=== PATIENT | male | born 1930 | race Caucasian/White ===

== ENCOUNTER 2017-03-11 15:23 | Inpatient (IN) ==
--- NOTE | 2017-03-11 15:44 | Internal Med History&Physical ---
Date of Encounter: 03/11/17 Time of Encounter: 15:42 Assessment and Plan (1) Delirium Current visit: No Status: Chronic Patient was noted to have encephalopathy was respiratory failure (2) Gastric ulcer Current visit: No Status: Acute Patient had a history of peptic ulcer disease with bleed Qualifiers: Gastric ulcer chronicity: acute Gastric ulcer complication status: with hemorrhage Qualified Code(s): K25.0 - Acute gastric ulcer with hemorrhage (3) Upper GI bleeding Current visit: No Status: Resolved By history (4) Hypertension Current visit: No Status: Chronic By history Qualifiers: Hypertension type: essential hypertension Qualified Code(s): I10 - Essential (primary) hypertension Internal Medicine - H&P: HPI Chief complaint: Apparently had respiratory failure and encephalopathy Admitted From: Hospital to Hospital Transfer Plans for Post Hospital Care: Home History of present illness: Mr. Haywood is a 86 year old male She was brought here for deconditioning 82 for a white male that I respiratory failure and encephalopathy along with coexisting multiple medical problems Past Med Surg Social Fam HX - Past Medical History Medical history: arthritis, COPD, hypertension, other Psychiatric history: no psych history - Past Surgical History Surgical History: orthopedic, other, other - Social History Smoking Status: Never smoker Smokeless Tobacco Status: No Alcohol use: none Drug use: none - Family History Mother Adopted: No Family Member Ethnicity: Non- Living Status: Hx Family Cancer: Yes Internal Medicine - H&P: Meds Amlodipine [Norvasc] 5 mg PO DAILY 07/04/16 [History] Atenolol 100 mg PO DAILY 07/04/16 [History] OxyCODONE Immed Rel [Roxicodone 5 MG] 5 - 10 mg PO Q6HR PRN #40 tablet 03/08/17 [Rx] Enoxaparin [Lovenox] 30 mg SQ DAILY #10 syr 03/11/17 [Rx] Allergies aspirin Adverse Reaction (Verified 03/09/17 12:43) See Comments HAD A BLEEDING ULCER morphine Adverse Reaction (Verified 07/05/16 11:56) Nausea All Systems PM: A 10-system review of systems was performed and is negative for pertinent findings except as documented above in the HPI. - Head Head exam: Present: atraumatic, normal inspection, normocephalic - Neck Neck exam general surgery: Present: supple, trachea midline. Absent: lymphadenopathy - Respiratory Respiratory exam: Present: CTAB. Absent: accessory muscle use, rales, rhonchi, wheezes - Cardiovascular Cardiovascular exam: Present: RRR, +S1, +S2. Absent: diastolic murmur, gallop, rubs, systolic murmur Internal Med - H&P Results - Labs Labs: Lab pending
[2017-03-11] MEDS ORDERED: *HR* OxyCODONE Immed Rel 5 MG TABLET PO PRN (16:05)
[2017-03-11] MEDS ORDERED: MOM Conc 10 ML UD.LIQ PO PRN (16:08)
--- NOTE | 2017-03-11 16:12 | Internal Med History&Physical ---
Date of Encounter: 03/11/17 Time of Encounter: 16:09 Assessment and Plan (1) Delirium Current visit: No Status: Chronic (2) Gastric ulcer Current visit: No Status: Acute Qualifiers: Gastric ulcer chronicity: acute Gastric ulcer complication status: with hemorrhage Qualified Code(s): K25.0 - Acute gastric ulcer with hemorrhage (3) Hypertension Current visit: No Status: Chronic Qualifiers: Hypertension type: essential hypertension Qualified Code(s): I10 - Essential (primary) hypertension Internal Medicine - H&P: HPI Chief complaint: Patient was brought here after total knee replacement for degenerative join Admitted From: Hospital to Hospital Transfer Plans for Post Hospital Care: Home History of present illness: Mr. Haywood is a 86 year old male A she will be here now for rehabilitation. Past Med Surg Social Fam HX - Past Medical History Medical history: arthritis, COPD, hypertension, other Psychiatric history: no psych history - Past Surgical History Surgical History: orthopedic, other, other - Social History Smoking Status: Never smoker Smokeless Tobacco Status: No Alcohol use: none Drug use: none - Family History Mother History Unknown: Yes Adopted: No Family Member Ethnicity: Non- Living Status: Hx Family Cancer: Yes Internal Medicine - H&P: Meds Amlodipine [Norvasc] 5 mg PO DAILY 07/04/16 [History] Atenolol 100 mg PO DAILY 07/04/16 [History] OxyCODONE Immed Rel [Roxicodone 5 MG] 5 - 10 mg PO Q6HR PRN #40 tablet 03/08/17 [Rx] Enoxaparin [Lovenox] 30 mg SQ DAILY #10 syr 03/11/17 [Rx] Allergies aspirin Adverse Reaction (Verified 03/09/17 12:43) See Comments HAD A BLEEDING ULCER morphine Adverse Reaction (Verified 07/05/16 11:56) Nausea All Systems PM: A 10-system review of systems was performed and is negative for pertinent findings except as documented above in the HPI. - Constitutional Vitals: Temp Pulse Resp BP Pulse Ox 98.9 F 77 16 153/82 94 03/11/17 15:29 03/11/17 15:29 03/11/17 15:29 03/11/17 15:29 03/11/17 15:29 - Head Head exam: Present: atraumatic, normal inspection, normocephalic
[2017-03-11] MEDS: *HR* OxyCODONE Immed Rel 5 MG TABLET PO PRN (18:40)
[2017-03-12] MEDS: *HR* OxyCODONE Immed Rel 5 MG TABLET PO PRN ×3 (01:27→15:37)
[2017-03-12 05:39] LABS: Basophils % 0.3 %; Eosinophils # 0.1 K/mcL (0.0-0.6); Eosinophils % 0.7 %; Hematocrit 26.6 % (37.5-50.1); Hemoglobin 8.8 g/dL (12.9-16.9); Immature Granulocytes % 0.7 % (0-4); Lymphocytes # 1.8 K/mcL (0.6-4.6); Lymphocytes % 15.5 %; Mean Corpuscular HGB Conc 33.1 g/dL (31.6-35.5); Mean Corpuscular Hemoglobin 29.6 pg (28.0-33.3); Mean Corpuscular Volume 89.6 fL (83.0-100.0); Mean Platelet Volume 10.8 fL (9.4-12.4); Monocytes # 1.3 K/mcL (0.0-1.3); Monocytes % 11.1 %; Neutrophils # 8.4 K/mcL (1.6-8.9); Platelet Count 179 K/mcL (140-400); Red Blood Count 2.97 M/mcL (4.19-5.50); Red Cell Distribution Width 13.4 % (11.5-14.5); Segmented Neutrophils % 71.7 %
[2017-03-12 05:47] LABS: INR 1.2; Prothrombin Time 12.5 Seconds (9.4-12.1)
[2017-03-12 05:48] LABS: BUN/Creatinine Ratio 24 (6-26); Blood Urea Nitrogen 23 mg/dL (8-26); Calcium 8.4 mg/dL (8.6-10.8); Carbon Dioxide 27 mEq/L (19-29); Chloride 103 mEq/L (98-109); Glucose 107 mg/dL (70-99); Osmolality,Calculated 288 (280-300); Potassium 4.4 mEq/L (3.5-4.5); Sodium 137 mEq/L (136-145); eGFR For African Americans > 60 (> 60); eGFR For Non-African Americans > 60 (> 60)
[2017-03-12] MEDS: *HR* Enoxaparin 40 MG/0.4 ML SYRINGE SQ SCH (09:24)
--- NOTE | 2017-03-12 14:38 | Internal Med Progress Note ---
Date of Encounter: 03/12/17 Time of Encounter: 14:36 - Assessment and plan (1) Delirium Current Visit: No Status: Chronic Assessment and plan: Resolved (2) Gastric ulcer Current Visit: No Status: Acute Assessment and plan: Under control Qualifiers: Gastric ulcer chronicity: acute Gastric ulcer complication status: with hemorrhage Qualified Code(s): K25.0 - Acute gastric ulcer with hemorrhage (3) Hypertension Current Visit: No Status: Chronic Assessment and plan: Well-controlled Qualifiers: Hypertension type: essential hypertension Qualified Code(s): I10 - Essential (primary) hypertension - Time Spent With Patient less than 15 minutes - Subjective Interval history: Since working with the therapist - Constitutional Vitals: Temp Pulse Resp BP Pulse Ox 98.1 F 72 16 131/81 96 03/12/17 11:39 03/12/17 12:30 03/12/17 12:30 03/12/17 12:30 03/12/17 12:30 - Neck Neck exam general surgery: Present: supple, trachea midline. Absent: lymphadenopathy - Respiratory Respiratory exam: Present: CTAB. Absent: accessory muscle use, rales, rhonchi, wheezes - Cardiovascular Cardiovascular exam: Present: RRR, +S1, +S2. Absent: diastolic murmur, gallop, rubs, systolic murmur Internal Medicine: Result - Labs CBC & Chem 7: 03/12/17 05:20 03/12/17 05:20 Labs: Short CBC 03/12/17 Range/Units 05:20 WBC 11.7 H (4.3-11.1) K/mcL Hgb 8.8 L (12.9-16.9) g/dL Hct 26.6 L (37.5-50.1) % Plt Count 179 (140-400) K/mcL Neutrophils # 8.4 (1.6-8.9) K/mcL BMP 03/12/17 05:20 Sodium 137 Potassium 4.4 Chloride 103 Carbon Dioxide 27 BUN 23 Creatinine 0.95 Glucose 107 H Calcium 8.4 L Lab looks stable - ABG Interpretation ABG results: PT/INR, D-dimer PT 12.5 Seconds (9.4-12.1) H 03/12/17 05:20 Consult Discharge Plan - Plan Referrals: Shamika Pena MD [Primary Care Provider] - (follow up with Danuta Dyer PAC 03/18/17 at 11:[address] [place], [place] [phone] Follow up with Danuta Dyer 03/26/17 at 9:[address] [place], [place] [phone] Follow up with Sin Encarnacion MD 04/07/17 at 9:[address], [address] [place], [place] [phone] Follow up with Robert Macias MD 04/07/17 at 2:[address] [place], [place] [phone] Follow up with Shamika Pena MD 04/28/17 at 12:30 [address] [facility] [place], [place] [phone])
[2017-03-13] MEDS: *HR* Enoxaparin 40 MG/0.4 ML SYRINGE SQ SCH (08:14)
[2017-03-13] MEDS: *HR* OxyCODONE Immed Rel 5 MG TABLET PO PRN ×2 (08:14→13:34)
--- NOTE | 2017-03-13 14:20 | Internal Med Progress Note ---
Date of Encounter: 03/13/17 Time of Encounter: 14:19 - Assessment and plan (1) Delirium Current Visit: No Status: Chronic Assessment and plan: Delirium seems to resolve (2) Gastric ulcer Current Visit: No Status: Acute Assessment and plan: Appears to be stable Qualifiers: Gastric ulcer chronicity: acute Gastric ulcer complication status: with hemorrhage Qualified Code(s): K25.0 - Acute gastric ulcer with hemorrhage (3) Hypertension Current Visit: No Status: Chronic Assessment and plan: Blood pressure well controlled Qualifiers: Hypertension type: essential hypertension Qualified Code(s): I10 - Essential (primary) hypertension - Time Spent With Patient less than 15 minutes - Subjective Interval history: Mr. Haywood is a pleasant 86-year-old who is working with a therapist and doing well. - Constitutional Vitals: Temp Pulse Resp BP Pulse Ox 99.5 F 70 20 133/77 96 03/13/17 06:50 03/13/17 06:50 03/13/17 06:50 03/13/17 06:50 03/13/17 06:50 - Head Head exam: Present: atraumatic, normal inspection, normocephalic - Neck Neck exam general surgery: Present: supple, trachea midline. Absent: lymphadenopathy - Respiratory Respiratory exam: Present: CTAB. Absent: accessory muscle use, rales, rhonchi, wheezes - Cardiovascular Cardiovascular exam: Present: RRR, +S1, +S2. Absent: diastolic murmur, gallop, rubs, systolic murmur - GI/Abdominal GI/Abdominal exam: Present: normal bowel sounds, soft, no peritoneal signs. Absent: distended, tenderness Internal Medicine: Result - Labs CBC & Chem 7: 03/12/17 05:20 03/12/17 05:20 Labs: Lab looks good - ABG Interpretation ABG results: PT/INR, D-dimer PT 12.5 Seconds (9.4-12.1) H 03/12/17 05:20 Consult Discharge Plan - Plan Referrals: Shamika Pena MD [Primary Care Provider] - (follow up with Danuta Dyer PAC 03/18/17 at 11:15 [address] [facility] [address], [address] [phone] Follow up with Danuta Dyer 03/26/17 at 9:[address] [place], [place] [phone] Follow up with Sin Encarnacion MD 04/07/17 at 9:[address] [place], [place] [phone] Follow up with Robert Macias MD 04/07/17 at 2:[address] [place], [place] [phone] Follow up with Shamika Pena MD 04/28/17 at 12:30 [address] [place], [place] [phone])
[2017-03-13] MEDS ORDERED: *HR* OxyCODONE Immed Rel 5 MG TABLET PO PRN (16:44)
--- NOTE | 2017-03-14 09:17 | Internal Med Progress Note ---
Date of Encounter: 03/14/17 Time of Encounter: 09:15 - Assessment and plan (1) History of knee replacement procedure of right knee Current Visit: Yes Status: Acute Assessment and plan: PT OT to work on improving gait, balance and transfer - Time Spent With Patient less than 15 minutes - Subjective Interval history: No new voiced complaint. Same postop pain. No shortness of breath. No chest pain. No nausea no vomiting. - Constitutional Vitals: Temp Pulse Resp BP Pulse Ox 97.6 F 72 18 128/72 93 03/14/17 07:00 03/14/17 08:02 03/14/17 08:02 03/14/17 08:02 03/14/17 08:02 General appearance: Present: A&O X 3, pleasant, no acute distress - Respiratory Respiratory exam: Present: CTAB. Absent: accessory muscle use, rales, rhonchi, wheezes - Cardiovascular Cardiovascular exam: Present: RRR, +S1, +S2. Absent: diastolic murmur, gallop, rubs, systolic murmur - GI/Abdominal GI/Abdominal exam: Present: normal bowel sounds, soft, no peritoneal signs. Absent: distended, tenderness - Expanded Lower Extremities Exam Knee exam: Present: ecchymosis, erythema, swelling, tenderness - Incison Incision: Present: clean and dry Internal Medicine: Result - Labs CBC & Chem 7: 03/12/17 05:20 03/12/17 05:20 - ABG Interpretation ABG results: PT/INR, D-dimer PT 12.5 Seconds (9.4-12.1) H 03/12/17 05:20 Consult Discharge Plan - Plan Referrals: Shamika Pena MD [Primary Care Provider] - (follow up with Danuta Dyer PAC 03/18/17 at 11:[address] [place], [place] [phone] Follow up with Danuta Dyer 03/26/17 at 9:[address] [place], [place] [phone] Follow up with Sin Encarnacion MD 04/07/17 at 9:[address], [address] [place], [place] [phone] Follow up with Robert Macias MD 04/07/17 at 2:[address] [place], [place] [phone] Follow up with Shamika Pena MD 04/28/17 at 12:30 [address] [place], [place] [phone])
[2017-03-14] MEDS: *HR* Enoxaparin 40 MG/0.4 ML SYRINGE SQ SCH (09:50)
[2017-03-14] MEDS: *HR* OxyCODONE Immed Rel 5 MG TABLET PO PRN ×2 (09:56→20:57)
[2017-03-15] MEDS: *HR* Enoxaparin 40 MG/0.4 ML SYRINGE SQ SCH (08:19)
[2017-03-15] MEDS: *HR* OxyCODONE Immed Rel 5 MG TABLET PO PRN (08:25)
--- NOTE | 2017-03-15 10:32 | Internal Med Progress Note ---
Date of Encounter: 03/15/17 Time of Encounter: 10:31 - Assessment and plan (1) Delirium Current Visit: No Status: Chronic Assessment and plan: Resolve (2) Gastric ulcer Current Visit: No Status: Acute Assessment and plan: Currently nonacute problem Qualifiers: Gastric ulcer chronicity: acute Gastric ulcer complication status: with hemorrhage Qualified Code(s): K25.0 - Acute gastric ulcer with hemorrhage (3) Hypertension Current Visit: No Status: Chronic Assessment and plan: Blood pressure is well controlled Qualifiers: Hypertension type: essential hypertension Qualified Code(s): I10 - Essential (primary) hypertension - Time Spent With Patient less than 15 minutes - Subjective Interval history: Mr. Haywood is a pleasant 86-year-old who is working with a therapist and doing well. - Constitutional Vitals: Temp Pulse Resp BP Pulse Ox 98.1 F 71 16 125/62 93 03/15/17 07:49 03/15/17 07:49 03/15/17 07:49 03/15/17 07:49 03/15/17 07:49 General appearance: Present: A&O X 3, pleasant, no acute distress - Head Head exam: Present: atraumatic, normal inspection, normocephalic - Neck Neck exam general surgery: Present: supple, trachea midline. Absent: lymphadenopathy - Respiratory Respiratory exam: Present: CTAB. Absent: accessory muscle use, rales, rhonchi, wheezes - Cardiovascular Cardiovascular exam: Present: RRR, +S1, +S2. Absent: diastolic murmur, gallop, rubs, systolic murmur Internal Medicine: Result - Labs CBC & Chem 7: 03/12/17 05:20 03/12/17 05:20 Labs: Abdomen stable - ABG Interpretation ABG results: PT/INR, D-dimer PT 12.5 Seconds (9.4-12.1) H 03/12/17 05:20 Consult Discharge Plan - Plan Referrals: Shamika Pena MD [Primary Care Provider] - (follow up with Danuta Dyer PAC 03/18/17 at 11:[address], [address] [phone] Follow up with Danuta Dyer 03/26/17 at 9:[address] [phone] Follow up with Sin Encarnacion MD 04/07/17 at 9:[address], [place], [place] [phone] Follow up with Robert Macias MD 04/07/17 at 2:[address] [place], [place] [phone] Follow up with Shamika Pena MD 04/28/17 at 12:30 [address] [place], [place] [phone])
[2017-03-16 06:09] LABS: Basophils # 0.1 K/mcL (0.0-0.2); Basophils % 0.7 %; Eosinophils # 0.3 K/mcL (0.0-0.6); Eosinophils % 4.1 %; Hematocrit 26.2 % (37.5-50.1); Hemoglobin 8.5 g/dL (12.9-16.9); Immature Granulocytes % 1.5 % (0-4); Lymphocytes # 1.3 K/mcL (0.6-4.6); Lymphocytes % 16.6 %; Mean Corpuscular HGB Conc 32.4 g/dL (31.6-35.5); Mean Corpuscular Hemoglobin 29.6 pg (28.0-33.3); Mean Corpuscular Volume 91.3 fL (83.0-100.0); Mean Platelet Volume 10.4 fL (9.4-12.4); Monocytes % 12.2 %; Neutrophils # 5.2 K/mcL (1.6-8.9); Platelet Count 269 K/mcL (140-400); Red Blood Count 2.87 M/mcL (4.19-5.50); Red Cell Distribution Width 13.6 % (11.5-14.5); Segmented Neutrophils % 64.9 %
[2017-03-16 06:16] LABS: BUN/Creatinine Ratio 28 (6-26); Blood Urea Nitrogen 27 mg/dL (8-26); Calcium 8.5 mg/dL (8.6-10.8); Carbon Dioxide 25 mEq/L (19-29); Chloride 105 mEq/L (98-109); Glucose 115 mg/dL (70-99); Osmolality,Calculated 292 (280-300); Potassium 4.2 mEq/L (3.5-4.5); Sodium 138 mEq/L (136-145); eGFR For African Americans > 60 (> 60); eGFR For Non-African Americans > 60 (> 60)
[2017-03-16] MEDS: *HR* OxyCODONE Immed Rel 5 MG TABLET PO PRN ×3 (07:52→16:59)
[2017-03-16] MEDS: *HR* Enoxaparin 40 MG/0.4 ML SYRINGE SQ SCH (10:17)
--- NOTE | 2017-03-16 15:16 | Internal Med Progress Note ---
Date of Encounter: 03/16/17 Time of Encounter: 15:14 - Assessment and plan (1) Delirium Current Visit: No Status: Chronic Assessment and plan: Resolve (2) Gastric ulcer Current Visit: No Status: Acute Assessment and plan: Stable Qualifiers: Gastric ulcer chronicity: acute Gastric ulcer complication status: with hemorrhage Qualified Code(s): K25.0 - Acute gastric ulcer with hemorrhage (3) Hypertension Current Visit: No Status: Chronic Assessment and plan: Blood pressures controlled Qualifiers: Hypertension type: essential hypertension Qualified Code(s): I10 - Essential (primary) hypertension - Time Spent With Patient less than 15 minutes - Subjective Interval history: Mr. Haywood is a pleasant 86-year-old who is working with a therapist and doing well. - Constitutional Vitals: Temp Pulse Resp BP Pulse Ox 98.3 F 75 16 153/77 94 03/16/17 07:15 03/16/17 13:36 03/16/17 13:36 03/16/17 13:36 03/16/17 13:36 General appearance: Present: A&O X 3, pleasant, no acute distress - Head Head exam: Present: atraumatic, normal inspection, normocephalic - Neck Neck exam general surgery: Present: supple, trachea midline. Absent: lymphadenopathy - Respiratory Respiratory exam: Present: CTAB. Absent: accessory muscle use, rales, rhonchi, wheezes - Cardiovascular Cardiovascular exam: Present: RRR, +S1, +S2. Absent: diastolic murmur, gallop, rubs, systolic murmur Internal Medicine: Result - Labs CBC & Chem 7: 03/16/17 05:30 03/16/17 05:30 Labs: Short CBC 03/16/17 Range/Units 05:30 WBC 8.0 (4.3-11.1) K/mcL Hgb 8.5 L (12.9-16.9) g/dL Hct 26.2 L (37.5-50.1) % Plt Count 269 D (140-400) K/mcL Neutrophils # 5.2 (1.6-8.9) K/mcL BMP 03/16/17 05:30 Sodium 138 Potassium 4.2 Chloride 105 Carbon Dioxide 25 BUN 27 H Creatinine 0.97 Glucose 115 H Calcium 8.5 L Lab is stable - ABG Interpretation ABG results: PT/INR, D-dimer PT 12.5 Seconds (9.4-12.1) H 03/12/17 05:20 Consult Discharge Plan - Plan Referrals: Shamika Pena MD [Primary Care Provider] - (follow up with Danuta Dyer PAC 03/18/17 at 11:[address], [address] [place], [place] [phone] Follow up with Danuta Dyer 03/26/17 at 9:[address] [place], [place] [phone] Follow up with Sin Encarnacion MD 04/07/17 at 9:[address], [address] [place], [place] [phone] Follow up with Robert Macias MD 04/07/17 at 2:[address] [place], [place] [phone] Follow up with Shamika Pena MD 04/28/17 at 12:30 [address] [place], [place] [phone])
[2017-03-17 07:20] VITALS: BP 121/76
[2017-03-17] MEDS: *HR* Enoxaparin 40 MG/0.4 ML SYRINGE SQ SCH (09:44)
--- NOTE | 2017-03-17 11:45 | Discharge Summary ---
Date of Encounter: 03/18/17 Time of Encounter: 11:43 - Discharge Diagnosis (1) History of total right knee replacement Priority: Primary Status: Acute Comments: Patient is done very well. - Discharge Medications Home Medications: Amlodipine [Norvasc] 5 mg PO DAILY 07/04/16 [History] Atenolol 100 mg PO DAILY 07/04/16 [History] OxyCODONE Immed Rel [Roxicodone 5 MG] 5 - 10 mg PO Q6HR PRN #40 tablet 03/08/17 [Rx] Enoxaparin [Lovenox] 30 mg SQ DAILY #10 syr 03/11/17 [Rx] Allergies/Adverse Reactions: Allergies aspirin Adverse Reaction (Verified 03/09/17 12:43) See Comments HAD A BLEEDING ULCER morphine Adverse Reaction (Verified 07/05/16 11:56) Nausea Date of admission: 03/11/17 15:23 Primary care physician: Shamika Pena MD Consults: 03/11/17 15:59 Consult to Occupational Therapy [CONS] Routine Comment: Evaluate, develop and implement POC Consult to Physical Medicine/Rehab [CONS] Routine Reason for Consult: s/p knee Call Completed: Yes Consult to Physical Therapy [CONS] Routine Comment: Evaluate, develop and implement POC Consult to Recreational Therapy [CONS] Routine Comment: Evaluate, develop and implement POC Consult to [facility] [CONS] Routine Reason for SW Consult: Discharge planning s/p knee Discharging clinician: Geoffrey Martinez Anticipated date of discharge: 03/18/17 - Patient Status Disposition: Home Health Service Condition: Good Overall status at discharge: patient is progressing back to baseline - Discharge Instructions Follow Up With: Shamika Pena MD [Primary Care Provider] - (follow up with Danuta Dyer PAC 03/18/17 at 11:[address] [place], [place] [phone] Follow up with Danuta Dyer 03/26/17 at 9:[address] [place], [place] [phone] Follow up with Sin Encarnacion MD 04/07/17 at 9:[address], [address] [place], [place] [phone] Follow up with Robert Macias MD 04/07/17 at 2:[address] [place], [place] [phone] Follow up with Shamika Pena MD 04/28/17 at 12:30 [address] [place], [place] [phone]) - Diet and Activity Activity: ambulate only with your walker Diet: advance to your usual diet Interval History: She was admitted after right total knee replacement for osteoarthritis Hospital course: Mr. Haywood is a 86 year old male Patient is Steve participated in all phases of PT OT TR. It is done very well. He will be discharged home with home health - Time Spent with Patient Total time spent providing and/or coordinating discharge services: Less than 30 minutes - Constitutional Vitals: Temp Pulse Resp BP Pulse Ox 98.6 F 72 16 121/76 97 03/17/17 07:00 03/17/17 07:00 03/17/17 07:00 03/17/17 07:00 03/17/17 07:00 General appearance: Present: A&O X 3, pleasant, no acute distress - Head Head exam: Present: atraumatic, normal inspection, normocephalic - Neck Neck exam general surgery: Present: supple, trachea midline. Absent: lymphadenopathy - Respiratory Respiratory exam: Present: CTAB. Absent: accessory muscle use, rales, rhonchi, wheezes - Cardiovascular Cardiovascular exam: Present: RRR, +S1, +S2. Absent: diastolic murmur, gallop, rubs, systolic murmur
--- NOTE | 2017-03-17 11:49 | Physician Discharge Referral ---
Home Health/Hosp Referral Info Transfer to: Home Health Provider in Charge Post Discharge: PCP - Diagnosis (1) History of total right knee replacement Priority: Primary Status: Acute - Respiratory Orders Smoking Cessation: Smoking cessation has been advised. For more information, call the [place] Tobacco Quit Line at 9-414-NSCP-NOW. - Transfer Medications Home Medications: Amlodipine [Norvasc] 5 mg PO DAILY 07/04/16 [History] Atenolol 100 mg PO DAILY 07/04/16 [History] OxyCODONE Immed Rel [Roxicodone 5 MG] 5 - 10 mg PO Q6HR PRN #40 tablet 03/08/17 [Rx] Enoxaparin [Lovenox] 30 mg SQ DAILY #10 syr 03/11/17 [Rx] Allergies/Adverse Reactions: Allergies aspirin Adverse Reaction (Verified 03/09/17 12:43) See Comments HAD A BLEEDING ULCER morphine Adverse Reaction (Verified 07/05/16 11:56) Nausea Certification: Further, I certify that my clinical findings support that this patient is homebound (i.e. absences from home require considerable and taxing effort and are for medical reasons or religion services or infrequently or short duration when for other reasons) because: Homebound Reason: Patient requires assistance of a person or device to safely leave home Attestation: My signature below is to certify that this patient is under my care and that I, or nurse practitioner, or a physician's medication assistant working with me, has a face-to -face encounter with this patient.
== END 2017-03-17 14:40 | disposition home health service (06) | DRG 560 ==
LOC: INPGRE 15:23
PROVIDERS: ADMIT Internal Medicine; ATTEND Internal Medicine